=== PATIENT | male | born 1980 | race Two or more races ===

== ENCOUNTER 2022-08-28 19:24 | Emergency (ER) | payer OTHER ==
[~2022-08-28] VITALS: Ht 175.3 cm; Wt 88.5 kg
[2022-08-28 20:22] LABS: Basophils # (auto) 0.1 10 ^3/uL (0-0.2); Basophils % (auto) 1.9 % (0.0-2.0); Eosinophils # (auto) 0.3 10 ^3/uL (0-0.8); Eosinophils % (auto) 4.6 % (0.0-7.0); Hemoglobin 15.2 g/dL (13.5-17.5); Lymphocytes # (auto) 2.7 10 ^3/uL (0.4-5.4); Lymphocytes % (auto) 38.6 % (10.0-50.0); Mean Corpuscular Hemoglobin 28.4 pg (28.0-32.0); Mean Corpuscular Hgb Conc. 33.7 g/dL (32.0-36.0); Mean Corpuscular Volume 84.3 fL (80.0-100.0); Monocytes # (auto) 0.5 10 ^3/uL (0-1.3); Monocytes % (auto) 7.4 % (0.0-12.0); Neutrophils # (auto) 3.4 10 ^3/uL (1.6-8.6); Neutrophils % (auto) 47.5 % (37.0-80.0); Nucleated Red Blood Cells % 0.2 %; Red Blood Cells 5.34 10^6/uL (4.5-5.90); Red Cell Distribution Width 13.2 % (11.8-14.3); White Blood Cell 7.1 10^3/uL (4.4-10.8)
[2022-08-28 20:36] LABS: Albumin 3.7 g/dL (3.4-5.0); Calcium 8.8 mg/dL (8.5-10.1); Potassium 3.9 mmol/L (3.5-5.1)
[2022-08-28 20:44] LABS: BUN/Creatinine Ratio 12.8; Bilirubin, Total 0.2 mg/dL (0.2-1.0); CRP High Sensitivity 2.34 mg/dL (< 0.3); Total Protein 7.6 g/dL (6.4-8.2)
[2022-08-28] MEDS ORDERED: VANCOMYCIN PER PHARMACY 0 MG IV SCH (21:15)
[2022-08-28 21:56] VITALS: BP 147/99
[2022-08-28] MEDS ORDERED: HYDROcodone-ACET 10/325MG TAB PO ONE (22:00)
== END 2022-08-28 22:08 | disposition short-term general hospital (02) ==
LOC: ER 19:27
DX: L03.114 Cellulitis of left upper limb (principal)
CPT/HCPCS: 36415; 73130; 80053; 83605; 85025; 86141; 87040; 87205